=== PATIENT | female | born 1940 | race Caucasian/White ===

== ENCOUNTER 2020-03-05 13:59 | Observation (INO) ==
[2020-03-05] MEDS ORDERED: Ondansetron 4 MG/2 ML VIAL IVP PRN (15:38)
[2020-03-05] MEDS ORDERED: Naloxone 0.4 MG/ML INJ IVP PRN (15:38)
[2020-03-05] MEDS ORDERED: *HR* Dextrose 50 % in Water (Syg) 50 ML SYRINGE IVP PRN (15:39)
[2020-03-05] MEDS ORDERED: Dextrose Gel 15 GM/37.5 ML TUBE PO PRN ×2 (15:39)
[2020-03-05] MEDS ORDERED: D5% in Water 1,000 ML IVC PRN (15:39)
[2020-03-05] MEDS ORDERED: *HR* Labetalol 20 MG/4 ML SYRINGE IVP PRN (16:08)
[2020-03-05] MEDS: Ringers Solution, Lactated 1,000 ML IVC SCH (16:21)
[2020-03-05] MEDS: Acetaminophen 325 MG TABLET PO PRN (16:23)
[2020-03-05] MEDS: Insulin LISPRO 300 UNITS/3 ML VIAL SQ SCH ×2 (17:32→23:48)
[2020-03-05] MEDS ORDERED: SUMAtriptan succinate 50 MG TABLET PO ONE (18:42)
[2020-03-05] MEDS ORDERED: *HR* Metoprolol 5 MG/5 ML VIAL IVP ONE (20:04)
[2020-03-05] MEDS: Piperacillin/Tazobactam 3.375 GM in 0.9 % Sodium Chloride Mini Bag 100 ML IVPB SCH (20:11)
[2020-03-05] MEDS: polyethylene glycoL 3350 17 GM POWD.PACK PO PRN (20:41)
[2020-03-05] MEDS: carvediloL 25 MG TABLET PO SCH (22:25)
[2020-03-05] MEDS ORDERED: cloNIDine HCL 0.1 MG TABLET PO ONE (23:17)
[2020-03-06 01:24] LABS: Basophils % 0.5 %; Eosinophils # 0.1 K/mcL (0.0-0.6); Eosinophils % 1.9 %; Hematocrit 38.2 % (35.3-44.9); Hemoglobin 12.7 g/dL (11.5-15.4); Immature Granulocytes % 0.3 % (0-4); Lymphocytes # 2.4 K/mcL (0.6-4.6); Lymphocytes % 32.3 %; Mean Corpuscular HGB Conc 33.2 g/dL (31.6-35.5); Mean Corpuscular Hemoglobin 29.1 pg (28.0-33.3); Mean Corpuscular Volume 87.4 fL (83.0-100.0); Mean Platelet Volume 9.1 fL (9.4-12.4); Monocytes # 0.8 K/mcL (0.0-1.3); Monocytes % 11.1 %; Platelet Count 177 K/mcL (140-400); Red Blood Count 4.37 M/mcL (3.82-4.97); Red Cell Distribution Width 12.6 % (11.5-14.5); Segmented Neutrophils % 53.9 %; White Blood Count 7.4 K/mcL (4.3-11.1)
[2020-03-06 01:40] LABS: BUN/Creatinine Ratio 17 (6-26); Blood Urea Nitrogen 12 mg/dL (8-23); Calcium 8.6 mg/dL (8.6-10.3); Carbon Dioxide 23 mEq/L (23-29); Chloride 107 mEq/L (98-107); Glucose 123 mg/dL (70-105); Magnesium 1.7 mg/dL (1.6-2.6); Osmolality,Calculated 289 (280-300); Potassium 3.7 mEq/L (3.5-5.1); Sodium 139 mEq/L (136-145); eGFR For African Americans > 60 (> 60); eGFR For Non-African Americans > 60 (> 60)
[2020-03-06] MEDS: Acetaminophen 325 MG TABLET PO PRN ×2 (01:56→20:01)
[2020-03-06] MEDS ORDERED: Prochlorperazine 10 MG/2 ML VIAL IVP PRN (02:42)
[2020-03-06] MEDS: Piperacillin/Tazobactam 3.375 GM in 0.9 % Sodium Chloride Mini Bag 100 ML IVPB SCH ×3 (04:01→19:47)
[2020-03-06] MEDS: Ringers Solution, Lactated 1,000 ML IVC SCH (04:36)
[2020-03-06] MEDS: *HR* Enoxaparin 40 MG/0.4 ML SYRINGE SQ SCH (05:03)
[2020-03-06] MEDS: Insulin LISPRO 300 UNITS/3 ML VIAL SQ SCH ×2 (05:14→16:41)
[2020-03-06] MEDS ORDERED: *HR* LORazepam 2 MG/ML VIAL IVP ONE (05:31)
[2020-03-06] MEDS ORDERED: SUMAtriptan succinate 50 MG TABLET PO PRN (07:24)
[2020-03-06] MEDS: Potassium Effervescent 25 MEQ TABLET.EFF PO SCH (07:48)
[2020-03-06] MEDS: carvediloL 25 MG TABLET PO SCH ×2 (07:49→16:41)
[2020-03-06] MEDS: Aspirin Enteric Coated 81 MG Tablet PO SCH (07:51)
[2020-03-06] MEDS: Furosemide 20 MG TABLET PO SCH (07:52)
[2020-03-06] MEDS: Ketoconazole 2% CRM 15 GM TUBE TP SCH ×2 (07:56→21:43)
[2020-03-06] MEDS: *HR* LORazepam 2 MG/ML VIAL IVP PRN ×2 (14:47→22:54)
[2020-03-06] MEDS ORDERED: Insulin LISPRO 300 UNITS/3 ML VIAL SQ SCH (21:00)
[2020-03-06] MEDS: polyethylene glycoL 3350 17 GM POWD.PACK PO PRN (22:53)
[2020-03-07] MEDS: Piperacillin/Tazobactam 3.375 GM in 0.9 % Sodium Chloride Mini Bag 100 ML IVPB SCH (03:27)
[2020-03-07] MEDS: *HR* Enoxaparin 40 MG/0.4 ML SYRINGE SQ SCH (05:09)
[2020-03-07 07:38] VITALS: BP 182/97
[2020-03-07] MEDS: Aspirin Enteric Coated 81 MG Tablet PO SCH (08:16)
[2020-03-07] MEDS: carvediloL 25 MG TABLET PO SCH (08:17)
[2020-03-07] MEDS: Potassium Effervescent 25 MEQ TABLET.EFF PO SCH (08:17)
[2020-03-07] MEDS: Furosemide 20 MG TABLET PO SCH (08:18)
[2020-03-07] MEDS: Insulin LISPRO 300 UNITS/3 ML VIAL SQ SCH (08:23)
[2020-03-07] MEDS: Ketoconazole 2% CRM 15 GM TUBE TP SCH (08:24)
== END 2020-03-07 12:26 | disposition home or self-care (01) ==
LOC: 3ANU → SUATTDRO 15:38
PROVIDERS: ADMIT Internal Medicine; ATTEND Internal Medicine